=== PATIENT | female | born 1960 | race Caucasian/White ===

== ENCOUNTER → 2017-03-21 | Outpatient (CLI) | payer BC | END | disposition home or self-care (01) | LOC: RAD 17:23 | PROVIDERS: ATTEND Nurse Practitioner Family | DX: J20.9 Acute bronchitis, unspecified (principal) | CPT/HCPCS: 71020 ==

== ENCOUNTER 2017-10-22 00:30 | Emergency (ER) | payer BC ==
[~2017-10-22] VITALS: Ht 165.1 cm; Wt 74.7 kg
[2017-10-22] MEDS ORDERED: DIPHENHYDRAMINE 25 MG CAPSULE ONE (01:59)
[2017-10-22] MEDS ORDERED: DIPHENHYDRAMINE 25 MG CAPSULE PO ONE (02:00)
[2017-10-22 02:54] VITALS: BP 146/89
== END 2017-10-22 02:55 | disposition home or self-care (01) ==
LOC: ED 02:14
DX: T78.3XXA Angioneurotic edema, initial encounter (principal)
CPT/HCPCS: 71046; 99284; Q0163

== ENCOUNTER 2021-01-22 16:24 | Emergency (ER) | payer BC ==
[~2021-01-22] VITALS: Ht 165.1 cm; Wt 75.7 kg
[2021-01-22 16:37] VITALS: BP 170/82
--- NOTE | 2021-01-22 16:57 | NUR ---
PROVIDER AT BEDSIDE TO ASSESS. PT R FOOT ELEVATED ON TOWELS AND ICE PACK APPLIED TO EXTREMITY. CMS INTACT DISTALLY. PT STATES ANKLE HAS BEEN SWOLLEN, DENIES TRAUMA AT SITE.
--- NOTE | 2021-01-22 17:51 | NUR ---
LENNIE MURRY AT BEDSIDE FOR SPLINT APPLICATION.
--- NOTE | 2021-01-22 18:05 | NUR ---
DISCHARGE INSTRUCTIONS REVIEWED WITH PT. ALL QUESTIONS ANSWERED AT THIS TIME.
== END 2021-01-22 18:08 | disposition home or self-care (01) ==
LOC: ED 18:00
DX: S93.411A Sprain of calcaneofibular ligament of right ankle, initial encounter (principal); S93.491A Sprain of other ligament of right ankle, initial encounter; X58.XXXA Exposure to other specified factors, initial encounter; Y93.89 Activity, other specified; Y92.89 Other specified places as the place of occurrence of the external cause; Y99.8 Other external cause status
CPT/HCPCS: 99283